=== PATIENT | female | born 1980 | race Caucasian/White ===

== ENCOUNTER → 2016-04-08 | Outpatient (CLI) | payer OTHER ==
--- NOTE | 2016-04-09 11:55 | NM ---
EXAMINATION TYPE: NM thyroid image w uptake DATE OF EXAM: 04/09/2016 11:50 AM COMPARISON: NONE HISTORY: Low TSH TECHNIQUE: After the intravenous administration of 10.4 mCi Tc 99m Sodium Pertechnetate, thyroid imag ing is [id number] minutes post injection. Thyroid iodine uptake is calculated after the oral adminis tration of 19.0 uCi I-131 capsule. FINDINGS: There is diffusely diminished distribution of activity throughout the gland without definit e hot or cold nodule. The 4 hour iodine uptake is calculated at 1.6% (normal range 8-14%). The 24-ho ur iodine uptake is calculated at 2.8% (normal range 15-35%). IMPRESSION: 1. Correlate for hypothyroidism
== END | disposition home or self-care (01) ==
LOC: RADNMMAIN 11:14
PROVIDERS: ATTEND Internal Medicine
DX: R94.6 Abnormal results of thyroid function studies (principal)
CPT/HCPCS: 78014; A9528; A9512